=== PATIENT | male | born 1985 | race Caucasian/White ===

== ENCOUNTER 2017-07-24 09:24 | Emergency (ER) | payer OTHER ==
[2017-07-24 09:39] VITALS: BP 157/76; BMI 34.2
--- NOTE | 2017-07-24 09:54 | DR.GENAD ---
HPI - PCP Primary Care Physician: MYCHAL RAMIREZ - Complaint/Symptoms Chief Complaint Doctors Comments: Patient presents with complaint of sore throat onset two days ago, hoarseness and back pain onset last night. Admits to temp of 102. Chief Complaint:: PT C/O BACK PAIN, FEVER, SWOLLEN GLANDS, CAN'T SWALLOW. STATES THESE SYMPTOMS HAVE BEEN GOING ON SINCE WEDNESDAY - Source History Provided: Patient, Significant Other - Mode of Arrival Mode of Arrival: Ambulatory - Timing Onset of Chief Complaint: 07/21/17 PMH - PMH Past Medical History: No Past Surgical History: Yes Surgical History: Ortho Surgery - Family History History of Family Medical Conditions: Yes Family Medical History: [place], Coronary Artery Disease - Social History Does patient currently use any type of tobacco product: No Have you used tobacco products in the last 12 months: No Type of Tobacco Use: None Does any household member use tobacco: No Alcohol Use: None Do you use any recreational Drugs:: No Lives With: Spouse Lives Where: Home - infectious screening In the last 2 months have you had wt loss of >10#?: NO Have you had fever, night sweats or hemotysis?: No Have you traveled outside the country in the last 6 months?: No Isolation: Standard ROS - Review of Systems Eyes: No Symptoms Reported ENTM: No Symptoms Reported, Throat Pain. negative: Nose Discharge Respiratoy: No Symptoms Reported Cardiovascular: No Symptoms Reported Gastrointestinal/Abdominal: No Symptoms Reported Genitourinary: No Symptoms Reported Neurological: No Symptoms Reported Musculoskeletal: Back Pain Integumentary: No Symptoms Reported Hematologic/Lymphatic: No Symptoms Reported Endocrine: No Symptoms Reported Psychiatric: No Symptoms Reported All Other Systems: Reviewed and Negative PE - Vital Signs Vitals: Temperature 98.5 F Pulse Rate [Right Brachial] 77 Pulse Rate 96 Respiratory Rate 20 Blood Pressure 157/76 O2 Sat by Pulse Oximetry 96 - General Limitations: No Limitations General Appearance: Alert, In No Apparent Distress - Head Head Exam: Normal Inspection, Atraumatic - Eyes Eye exam: Normal Appearance, PERRL, EOMI - ENT ENT Exam: Normal Exam External Ear Exam: Normal External Inspection TM/Canal Exam: Bilateral Normal Nose Exam: Normal Nose Exam Mouth Exam: Normal Inspection Throat Exam: Normal Inspection - Neck Neck Exam: Normal Inspection, Full ROM - Chest Chest Inspection: Normal Inspection - Respiratory Respiratory Exam: Normal Lung Sounds Bilat Respiratory Exam: Bilateral Clear to Auscultation - Cardiovascular Cardiovascular Exam: Regular Rate, Normal Rhythm - Abdominal Exam Abdominal Exam: Normal Inspection, Normal Bowel Sounds Abdominal Tenderness: negative: RUQ, RLQ, LUQ, LLQ, Epigastrium, Suprapubic, Diffuse, Mild, Moderate, Severe, Other - Extremities Extremities Exam: Normal Inspection - Back Back Exam: Normal Inspection, Tenderness (low back) - Neurologic Neurological Exam: Alert, Oriented X3, CN II-XII Intact - Psychiatric Psychiatric Exam: Normal Affect - Skin Skin Exam: Warm, Dry, Intact Course - Reevaluation 1st: Improved - Education/Counseling Educated On: Treatment, Diagnosis, Prognosis ROR - Labs Reviewed Laboratory Results Reviewed?: Yes (mono negative; strep negative) Result Diagrams: 07/24/17 10:15 Laboratory: WBC 11.3 X10^3/uL (3.6-10.0) H 07/24/17 10:15 RBC 4.82 X10^6/uL (4.7-6.0) 07/24/17 10:15 Hgb 14.8 g/dL (13.5-18.0) 07/24/17 10:15 Hct 42.3 % (42.0-54.0) 07/24/17 10:15 MCV 87.8 fL (80.0-100.0) 07/24/17 10:15 MCH 30.7 pg (27.0-34.0) 07/24/17 10:15 MCHC 35.0 g/dL (33.0-35.0) 07/24/17 10:15 RDW 12.9 % (11.6-16.5) 07/24/17 10:15 Plt Count 224 X10^3/uL (150.0-450.0) 07/24/17 10:15 MPV 8.6 fL (7.4-11.0) 07/24/17 10:15 Neut % (Auto) 70.0 % (42.0-75.0) 07/24/17 10:15 Lymph % (Auto) 18.9 % (21.0-51.0) L 07/24/17 10:15 [place] % (Auto) 10.3 % (0.0-13.0) 07/24/17 10:15 Eos % (Auto) 0.6 % (0.9-2.9) L 07/24/17 10:15 Baso % (Auto) 0.2 % (0.2-1.0) 07/24/17 10:15 Neut # (Auto) 7.9 x10^3/uL (2.2-4.8) H 07/24/17 10:15 Lymph # (Auto) 2.1 X10^3/uL (1.3-2.9) 07/24/17 10:15 [place] # (Auto) 1.2 x10^3/uL (0.3-0.8) H 07/24/17 10:15 Eos # (Auto) 0.1 x10^3/uL (0.0-0.2) 07/24/17 10:15 Baso # (Auto) 0.0 X10^3/uL (0.0-0.1) 07/24/17 10:15 Absolute Nucleated RBC 0.0 /100WBC 07/24/17 10:15 Monoscreen Negative (NEGATIVE) 07/24/17 10:15 S. pyogenes (TEM-PCR) Not detected (NOT DETECT) 07/24/17 10:15 - XRAY XRAY Interpreted by: Radiologist (Chest AP: negative) - Diagnosis Discharge Problem: Viral illness Pharyngitis Qualifiers: Pharyngitis/tonsillitis etiology: unspecified etiology Qualified Code(s): J02.9 - Acute pharyngitis, unspecified - Discharge Plan Condition: Stable - Follow ups/Referrals Follow ups/Referrals: MYCHAL RAMIREZ [Primary Care Provider] - 3 days - Instructions
[2017-07-24] MEDS ORDERED: TORADOL 60 MG VIAL IM ONE (09:58)
[2017-07-24] MEDS ORDERED: NS 1000 ML 1,000 ML IV ONE (09:59)
[2017-07-24] MEDS ORDERED: NS 1000 ML 1,000 ML ONE (10:02)
[2017-07-24] MEDS ORDERED: TORADOL 60 MG VIAL ONE (10:02)
[2017-07-24 10:25] LABS: BASOPHILS % (AUTO) 0.2 % (0.2-1.0); EOSINOPHILS # (AUTO) 0.1 x10^3/uL (0.0-0.2); EOSINOPHILS % (AUTO) 0.6 % (0.9-2.9); HEMATOCRIT 42.3 % (42.0-54.0); HEMOGLOBIN 14.8 g/dL (13.5-18.0); LYMPHOCYTES # (AUTO) 2.1 X10^3/uL (1.3-2.9); LYMPHOCYTES % (AUTO) 18.9 % (21.0-51.0); MEAN CORPUSCULAR HEMOGLOBIN 30.7 pg (27.0-34.0); MEAN CORPUSCULAR VOLUME 87.8 fL (80.0-100.0); MEAN PLATELET VOLUME 8.6 fL (7.4-11.0); MONOCYTES # (AUTO) 1.2 x10^3/uL (0.3-0.8); MONOCYTES % (AUTO) 10.3 % (0.0-13.0); NEUTROPHILS # (AUTO) 7.9 x10^3/uL (2.2-4.8); PLATELET COUNT 224 X10^3/uL (150.0-450.0); RED BLOOD COUNT 4.82 X10^6/uL (4.7-6.0); RED CELL DISTRIBUTION WIDTH 12.9 % (11.6-16.5); WHITE BLOOD COUNT 11.3 X10^3/uL (3.6-10.0)
--- NOTE | 2017-07-24 10:27 | RAD ---
Examination: AP chest History: Back pain, fever Findings: Normal transverse heart diameter, with clear lungs and pleural spaces. Impression: No acute or significant chest findings. Standard/conventional lateral view was not obtain ed. Reported By:
== END 2017-07-24 11:27 | disposition home or self-care (01) ==
LOC: ER 09:35
DX: J02.9 Acute pharyngitis, unspecified (principal); B34.9 Viral infection, unspecified
CPT/HCPCS: 36415; 71045; 85025; 86308; 87651; 96365; 96372; 99283; A4222; J1885